=== PATIENT | female | born 1970 | race Caucasian/White ===

== ENCOUNTER 2017-08-01 12:59 | Emergency (ER) | payer OTHER ==
[~2017-08-01] VITALS: Ht 165.1 cm; Wt 95.3 kg
[2017-08-01 12:59] VITALS: BP 117/82
--- NOTE | 2017-08-01 14:07 | PHYS DOC ---
Adult General Chief Complaint Chief Complaint: THUMB HPI HPI Patient is a 47 year old F who presents with a cut to her left thumb with a cheese grater just prior to arrival. She did wash her wound and was able to stop the bleeding prior to arrival. She has normal sensation and normal movement Review of Systems Review of Systems Constitutional: Denies fever or chills [] Eyes: Denies change in visual acuity, redness, or eye pain [] HENT: Denies nasal congestion or sore throat [] Respiratory: Denies cough or shortness of breath [] Cardiovascular: No additional information not addressed in HPI [] GI: Denies abdominal pain, nausea, vomiting, bloody stools or diarrhea [] : Denies dysuria or hematuria [] Musculoskeletal: Denies back pain or joint pain [] Integument: Denies rash or skin lesions [] Neurologic: Denies headache, focal weakness or sensory changes [] Endocrine: Denies polyuria or polydipsia [] All other systems were reviewed and found to be within normal limits, except as documented in this note. Family History Family History Family medical history was reported Current Medications Current Medications Current medications were reviewed Allergies Allergies Allergies Coded Allergies Type Severity Reaction Last Updated Verified No Known Drug Allergies 08/01/17 No Physical Exam Physical Exam Constitutional: Well developed, well nourished, no acute distress, non-toxic appearance. [] HENT: Normocephalic, atraumatic Eyes: EOMI, conjunctiva normal, no discharge. [] Neck: Normal range of motion, no tenderness, supple, no stridor. [] Cardiovascular:Heart rate regular rhythm, no murmur [] Lungs & Thorax: Bilateral breath sounds clear to auscultation [] Abdomen: Bowel sounds normal, soft, no tenderness, no masses, no pulsatile masses. [] Skin: Warm, dry, no erythema, skin flap on the left first PIP on the dorsal hand , hemostatic and clean. All the skin seems to be present Back: No tenderness, no CVA tenderness. [] Extremities: No tenderness, no cyanosis, no clubbing, ROM intact, no edema. [] Neurologic: Alert and oriented X 3, normal motor function, normal sensory function, no focal deficits noted. [] Psychologic: Affect normal, judgement normal, mood normal. [] Current Patient Data Vital Signs Normal vital signs. Please review nursing documentation for specifics EKG EKG [] Radiology/Procedures Radiology/Procedures Her wound was closed using Dermabond and was immobilized using a splint Course & Med Decision Making Course & Med Decision Making Pertinent Labs and Imaging studies reviewed. (See chart for details) [] Dragon Disclaimer Dragon Disclaimer This electronic medical record was generated, in whole or in part, using a voice recognition dictation system. Departure Departure: Impression: Primary Impression: Avulsion of skin of thumb without complication Disposition: HOME, SELF-CARE Condition: STABLE Referrals: QUETA SOLER APRN (PCP) Patient Instructions: Skin Tear Care Additional Instructions: Morenita was seen in the emergency department for a thumb laceration. No emergency medical condition was found on history or physical exam. Her wound was cleaned and repaired. Her thumb was immobilized and she was advised to keep it immobilized over the next 1-2 weeks to prevent the wound from reopening. She is advised follow-up with her primary care doctor as needed for further management. Problem Qualifiers Primary Impression: Avulsion of skin of thumb without complication Encounter type: initial encounter Laterality: left Qualified Codes: S61.002A - Unspecified open wound of left thumb without damage to nail, initial encounter VAMSI WARE MD Aug 01, 2017 14:07
== END 2017-08-01 14:31 | disposition home or self-care (01) ==
LOC: ER 12:59
DX: S61.002A Unspecified open wound of left thumb without damage to nail, initial encounter (principal); W27.4XXA Contact with kitchen utensil, initial encounter; Y93.89 Activity, other specified; Y99.8 Other external cause status; Y92.89 Other specified places as the place of occurrence of the external cause
CPT/HCPCS: 12001; 99283

== ENCOUNTER → 2018-03-27 | Outpatient (CLI) | payer OTHER ==
--- NOTE | 2018-03-27 15:04 | RAD ---
Right RIBS with chest, 3 views, 03/27/2018: HISTORY: Pain No right rib fracture or bony abnormality is detected. There is no evidence of underlying pneumothorax, hemothorax or pulmonary infiltrate. The heart size is normal. IMPRESSION: No significant right rib abnormality is detected. Right shoulder, 3 views, 03/27/2018: No fracture or dislocation is identified. The periarticular soft tissues are unremarkable. IMPRESSION: No significant right shoulder abnormality is detected. Electronically signed by: Tanmay Gonzales MD (03/27/2018 3:01 PM) [facility]
== END | disposition home or self-care (01) ==
LOC: PMG 11:59
PROVIDERS: ATTEND Physician Assistant Medical
DX: M25.511 Pain in right shoulder (principal); R07.81 Pleurodynia
CPT/HCPCS: 71101; 73030

== ENCOUNTER → 2018-04-03 | Outpatient (CLI) | payer OTHER ==
--- NOTE | 2018-04-03 16:46 | RAD ---
DATE: April 03, 2018 EXAM: DIGITAL SCREEN BILAT W/CAD HISTORY: Screening study. COMPARISON: 08/10/2014. This study was interpreted with the benefit of Computerized Aided Detection (CAD). 2-D digital mammographic views of both breasts were performed in the CC and MLO projections. 3-D digital tomosynthesis images of both breasts were performed in the CC and MLO projections and reviewed on a computer workstation. FINDINGS: Breast Density: HETERO The breast parenchyma is heterogenously dense, which could reduce sensitivity of mammography. Breast parenchyma level C.. There are no dominant suspicious masses, suspicious microcalcifications or evidence of architectural distortion. IMPRESSION: No mammographic indicators for malignancy. BI-RADS CATEGORY: 1 NEGATIVE RECOMMENDED FOLLOW-UP: 12M 12 MONTH FOLLOW-UP PQRS compliance statement: Patient information was entered into a reminder system with a target due date April 04, 2019 for the next mammogram. Mammography is a sensitive method for finding small breast cancers, but it does not detect them all and is not a substitute for careful clinical examination. A negative mammogram does not negate a clinically suspicious finding and should not result in delay in biopsying a clinically suspicious abnormality. "Our facility is accredited by the [employer] Mammography [employer]." The patient's breast density may affect the ability of mammography to detect breast cancer. There are 4 categories of breast density, A, B, C and D. Breast density A means that most of the breast tissue is replaced with adipose tissue and therefore is not dense. Breast density B means that the breast tissue is mildly dense and scattered. Breast density C means that the breast tissue is heterogeneously dense. Breast density D means that the breast tissue is very dense. Breast densities especially C and D may decrease the sensitivity of mammography to detect breast cancer. Therefore, the patient may benefit from 3-D breast mammography (3D breast tomography) as a part of their screening mammogram. Insurance may or may not pay for this additional imaging. The patient's breast density based on today's mammogram is category C.
== END | disposition home or self-care (01) ==
LOC: MAMMO 12:54
PROVIDERS: ATTEND Physician Assistant Medical
DX: Z12.31 Encounter for screening mammogram for malignant neoplasm of breast (principal)
CPT/HCPCS: 77067